=== PATIENT | female | born 1960 | race Caucasian/White ===

== ENCOUNTER → 2017-03-09 | Outpatient (CLI) | payer OTHER ==
--- NOTE | 2017-03-09 08:41 | RAD ---
Exam: PA and lateral chest radiograph History: Cough, congestion, productive cough for multiple weeks, previous right lung surgery. Comparison: 01/10/2017. Findings: Cardiac silhouette is probably at the upper limits of normal for size. Postsurgical changes are again seen involving the right hemithorax. There is right lung volume loss. There may be component of right pleural effusion versus chronic right pleural thickening. Ill-defined density involving the right mid lung zone appears slightly increased from the previous study. No convincing infiltrate is seen involving the left lung. Impression: 1. Postsurgical changes of the right chest. 2. There is right pleural thickening versus component of right pleural effusion. 3. Increased amount of density involving the right mid lung. CT imaging with intravenous contrast may be helpful for further evaluation.
== END | disposition home or self-care (01) ==
LOC: DXRADRC 08:23
PROVIDERS: ATTEND Physician Assistant Medical
DX: R05 Cough (principal); R09.89 Other specified symptoms and signs involving the circulatory and respiratory systems
CPT/HCPCS: 71020

== ENCOUNTER → 2017-07-26 | Outpatient (CLI) | payer OTHER ==
--- NOTE | 2017-07-26 11:33 | RAD ---
Examination: 2 views of the chest. History: History of dyspnea, cough. Comparison: 03/01/2017. Findings: The cardiomediastinal silhouette grossly appears unremarkable. Volume loss identified in the right lung similar to prior exam with probable chronic pleural thickening or effusion grossly similar to prior exam. There is mild prominent appearing bilateral interstitial lung markings likely mild congestive changes. Moderate degenerative changes thoracic spine. Impression: 1. Postsurgical changes right chest with probable pleural thickening or right pleural effusion unchanged. 2. Mild prominent bilateral interstitial lung markings likely mild congestive changes.
== END | disposition home or self-care (01) ==
LOC: DXRADRC 10:39
PROVIDERS: ATTEND Physician Assistant
DX: R06.00 Dyspnea, unspecified (principal); R05 Cough
CPT/HCPCS: 71020

== ENCOUNTER → 2020-02-17 | Outpatient (CLI) | payer OTHER ==
--- NOTE | 2020-02-17 14:22 | RAD ---
DATE: 02/17/2020 10:10 AM EXAM: DIGITAL DIAGNOSTIC BILATERAL, BREAST LEFT HISTORY: Left breast mass COMPARISON: March 11, 2015 Bilateral CC and MLO views of the breasts were performed. Targeted left breast ultrasound was also performed. This study was interpreted with the benefit of Computerized Aided Detection (CAD). FINDINGS: Breast Density: SCATTERED The breast parenchyma shows scattered fibroglandular densities. Breast parenchyma level B Left breast mammogram: Mass within the left breast mid depth with irregular margins measures 1.6 x 1.6 cm with architectural distortion and microcalcifications at approximately 11:00 position. There is an additional mass with irregular margins adjacent medially measuring 1.4 x 1.2 cm with architectural distortion at approximately 10:00 position. Right breast biopsy clip noted. Smoothly marginated mass within the left breast 3:00 position approximately 6.5 cm from the nipple and measures 0.9 cm. Left breast ultrasound: Irregular mass within the left breast 11:00 position measures 1.3 x 1.0 cm with microcalcifications and Doppler flow. Additional mass immediately adjacent irregular contour measures 1.0 x 1.2 x 0.8 cm with Doppler flow. Well-circumscribed complex cyst within the left breast 3:00 position approximately 6 cm from the nipple measures 0.6 x 0.4 cm. Small lymph nodes within the left axilla with fatty hilum. Largest lymph node measures 1.3 x 0.9 cm. Right breast mammogram: No suspicious mass, architectural distortion or microcalcification. Vascular calcifications noted. IMPRESSION: 1. Two adjacent left breast irregular spiculated masses with microcalcifications, concerning for malignancy. Recommend ultrasound-guided biopsy to further evaluate. 2. Complex cyst within the left breast 3:00 position. BI-RADS CATEGORY: 5 HIGHLY SUGGESTIVE MALIGNANCY RECOMMENDED FOLLOW-UP: Recommend ultrasound-guided biopsy to further evaluate. PQRS compliance statement: Patient information was entered into a reminder system with a target due date for the next mammogram. Mammography is a sensitive method for finding small breast cancers, but it does not detect them all and is not a substitute for careful clinical examination. A negative mammogram does not negate a clinically suspicious finding and should not result in delay in biopsying a clinically suspicious abnormality. "Our facility is accredited by the [employer] Mammography Program." MTDD
== END | disposition home or self-care (01) ==
LOC: MAMMO 09:35
PROVIDERS: ATTEND Physician Assistant Medical
DX: N63.22 Unspecified lump in the left breast, upper inner quadrant (principal); N60.02 Solitary cyst of left breast
CPT/HCPCS: 76641; 77066